=== PATIENT | female | born 1985 | race Caucasian/White ===

== ENCOUNTER 2017-02-20 05:07 | Inpatient (IN) | payer BC, OTHER ==
[2017-02-20] MEDS ORDERED: CITRIC ACID-SODIUM CITRATE 15 ML CUP PO ONE (05:21)
[2017-02-20] MEDS ORDERED: ceFAZolin 2 GM in SODIUM CHLORIDE 0.9% 100 ML IVPB ONE (05:21)
[2017-02-20] MEDS ORDERED: LACTATED RINGERS 1,000 ML IV ONE (05:21)
[2017-02-20 05:28] VITALS: BMI 30.2
[2017-02-20 05:45] LABS: Basophils % (A) 0 %; CH 28.3; CHCM 31.2; Eosinophils # (A) 0.1 k/uL (0-0.7); Eosinophils % (A) 2 %; HCT 29.1 % (34.0-46.0); HDW 2.76; HGB 9.3 gm/dL (11.4-16.0); Hypochromasia Slight; Luc # (Auto) 0.15; Luc % (Auto) 2; Lymphocytes # (A) 1.3 k/uL (1.0-4.8); Lymphocytes % (A) 21 %; MCHC 31.9 g/dL (31.0-37.0); Monocytes # (A) 0.4 k/uL (0-1.0); Monocytes % (A) 6 %; Neutrophils # (A) 4.5 k/uL (1.3-7.7); Neutrophils % (A) 70 %; RBC 3.19 m/uL (3.80-5.40); RDW 14.2 % (11.5-15.5); WBC 6.5 k/uL (3.8-10.6); WBC (Perox) 6.78
[2017-02-20] MEDS: LACTATED RINGERS 1,000 ML IV SCH ×3 (07:22→21:35)
--- NOTE | 2017-02-20 07:31 | P.HPOB ---
History of Present Illness H&P Date: 02/20/17 Chief Complaint: Here for repeat section This is a 31-year-old white female 2 para 1001 EDC 02/26/2017 at 39 and one sevenths week. Patient had a previous section, low transverse for breech presentation. She contemplated the option of , but we have elected repeat for estimated weight greater than 97th percentile and elevated HAKAN. Fetus is been active throughout the . She presents this morning with regular mild uterine contractions. She denies vaginal bleeding or fluid leakage. Past medical history is significant for renal lithiasis. Past surgical history low transverse section for breech 2013, tubes in the ears as a child, wisdom teeth extracted. Current medications vitamins daily. ALLERGIES none known. Family history is significant for diabetes and hypertension as well as blood clots. Social history patient is , she has never been a smoker, she works at a [employer], she denies alcohol or drug use. history is consistent with blood type A+, rubella status immune. VDRL testing, urine culture, hepatitis B surface antigen, HIV testing, gonorrhea and chlamydia cultures, group B strep cultures all negative. One-hour Glucola 111. On exam this is a pleasant white female, 5 foot 1 inch, 160 pounds, blood pressure 127/78. The general physical exam is within normal limits. The chest is clear in all sexton. The extremities reveal no edema. heart rate is consistent with reactive NST. position is vertex, fundal height 43 cm. Impression: 39 and one sevenths weeks intrauterine , estimated weight greater than 97th percentile with elevated HAKAN, previous section , choosing repeat , declining tubal ligation. Plan repeat low transverse section at this time. The risks benefits and alternatives of this plan have been discussed with the patient in detail, and all questions are answered. Tubal ligation is offered and declined. Review of Systems Negative except as in HPI Past Medical History Additional Past Medical History / Comment(s): 1988 Fracture skull as child, seasonal allergies History of Any Multi-Drug Resistant Organisms: None Reported Past Surgical History: Section Additional Past Surgical History / Comment(s): Tubes in ears and wisdom teeth pulled Past Anesthesia/Blood Transfusion Reactions: No Reported Reaction Past Psychological History: No Psychological Hx Reported Smoking Status: Never smoker Past Alcohol Use History: None Reported Past Drug Use History: None Reported - Past Family History Father Family Medical History: Deep Vein Thrombosis (DVT) Medications and Allergies Home Medications Medication Instructions Recorded Confirmed Type Yso-Tcac-Chnob Acid 1 each PO DAILY 12/20/13 02/20/17 History [-U Capsule] Loratadine [Claritin] 10 mg PO DAILY PRN 02/19/17 02/20/17 History Allergies Allergy/AdvReac Type Severity Reaction Status Date / Time Latex, Natural Rubber Allergy Rash/Hives Verified 02/20/17 05:20 Exam - Vital Signs Vital signs: Vital Signs Temp Pulse Resp BP 02/20/17 05:23 97.0 F L 83 16 127/78 Intake and Output 02/19/17 02/20/17 02/20/17 22:59 06:59 14:59 Other: # Voids 1 Weight 72.575 kg See dictation under HPI please Results Result Diagrams: 02/20/17 05:30 Abnormal Lab Results - Last 24 Hours (Table) 02/20/17 Range/Units 05:30 RBC 3.19 L (3.80-5.40) m/uL Hgb 9.3 L (11.4-16.0) gm/dL Hct 29.1 L (34.0-46.0) % Assessment and Plan Plan: For repeat low transverse section, declining tubal ligation. Time with Patient: Less than 30
[2017-02-20] MEDS ORDERED: ONDANSETRON 4 MG/2 ML VIAL ONE (07:33)
[2017-02-20] MEDS ORDERED: OXYTOCIN 10 UNIT/ML 1 ML VIAL ONE (07:33)
[2017-02-20] MEDS ORDERED: MORPHINE SULFATE (PF) 0.3 MG/0.3 ML SYR ONE (07:33)
[2017-02-20] MEDS ORDERED: NALBUPHINE 10 MG/ML AMPUL ONE (07:33)
[2017-02-20] MEDS ORDERED: KETOROLAC 30 MG/ML 1 ML VIAL ONE (07:33)
[2017-02-20] MEDS ORDERED: ONDANSETRON 4 MG/2 ML VIAL IVP PRN ×2 (07:59→08:30)
[2017-02-20] MEDS ORDERED: NALOXONE 0.4 MG/ML 1 ML VIAL IV PRN ×2 (07:59→08:30)
[2017-02-20] MEDS ORDERED: MORPHINE SULFATE 4 MG/ML SYRINGE IVP PRN (07:59)
[2017-02-20] MEDS ORDERED: diphenhydrAMINE 50 MG/ML 1 ML VIAL IVP PRN ×3 (07:59→08:30)
[2017-02-20] MEDS ORDERED: Acetaminophen-Codeine 300-30mg TAB PO PRN (08:30)
[2017-02-20] MEDS ORDERED: ACETAMINOPHEN TAB 325 MG TAB PO PRN (08:30)
[2017-02-20] MEDS ORDERED: ZOLPIDEM 5 MG TAB PO PRN (08:30)
[2017-02-20] MEDS ORDERED: diphenhydrAMINE 25 MG CAP PO PRN (08:30)
[2017-02-20] MEDS ORDERED: KETOROLAC 30 MG/ML 1 ML VIAL IVP PRN (08:30)
[2017-02-20] MEDS ORDERED: METOCLOPRAMIDE 5 MG/ML 2 ML VIAL IVP PRN (08:30)
[2017-02-20] MEDS ORDERED: diphenhydrAMINE 50 MG CAP PO PRN (08:30)
--- NOTE | 2017-02-20 08:30 | P.OP ---
Date of Procedure: 02/20/17 Preoperative Diagnosis: 39 and one sevenths week intrauterine , previous section, estimated weight greater than 97th percentile, elevated HAKAN. Declining . Postoperative Diagnosis: [place] male vertex, left occiput transverse, nuchal cord 1, thin lower uterine segment, normal-appearing tubes and ovaries bilaterally. Procedure(s) Performed: Repeat low transverse section Anesthesia: spinal Surgeon: Johana Syed Rug Cleaning Supervisor #1: Nayeli Tate Estimated Blood Loss (ml): 400 IV fluids (ml): 600 Urine output (ml): 250 Pathology: other (Placenta) Condition: stable Disposition: PACU Description of Procedure: Patient is brought to the operating suite where spinal with Duramorph is administered without difficulty. Patient is placed in the dorsal lithotomy position with left lateral uterine displacement. Antibiotics are given. The appropriate timeout was performed to assure proper patient and procedural identification. Donaldson catheter has been placed to direct drainage. The abdomen is prepped and draped in the usual sterile fashion. Analgesia is checked and noted to be adequate. A repeat low transverse skin incision is made in this is carried down through the subcutaneous tissue to the fascia. Fascia is isolated, scored and extended bilaterally with curved Durham scissors. Peritoneum is next identified and incised, there is no bowel or bladder involvement. Bladder flap was placed over the dome of the bladder. Bladder flap was taken down with Metzenbaum scissors and at all times the bladder was kept well from the operative field to avoid bladder and/or ureteral injury. A low transverse uterine incision is made. The lower uterine segment is very thin. Artificial amniorrhexis reveals an abundant amount of clear fluid. The incision is extended with blunt dissection. Infant's head is delivered in the left occiput transverse position. There was a nuchal cord 1 that is reduced. The oropharynx, nasopharynx, and external nares are bulb suctioned. Patient is officially delivered of a liveborn male infant at 0753 hours. Umbilical cord is doubly clamped and ligated, he is handed to waiting nurses for evaluation where scores of 9 and 9 at one and 5 minutes respectively are given. A segment of cord is sent to the lab. The placenta is delivered spontaneously, it is inspected and noted to be intact with trivascular cord. Uterus is then externalized and massaged. Oxytocin was started. The uterus is wiped clean with a sterile sponge to avoid any retained products of conception. The uterus is closed first with a running locking stitch of 0 Vicryl, second layer was imbricated 0 Vicryl for excellent reapproximation and hemostasis. Bilateral ovaries and tubes are inspected and noted to be normal. No uterine defects or fibroids are noted. Abdomen is suctioned with suction on guard and then the uterus is gently placed back into the abdominal cavity. Bilateral gutters are inspected and cleaned. Peritoneum was allowed to close by secondary intention. Fascia is closed in a running stitch of 0 Vicryl with over ligation in the midline. Subcutaneous tissue is irrigated, noted to be clean and dry. It is reapproximated with 3-0 Vicryl in a running fashion. 4-0 Monocryl is used subcuticularly for final skin closure. Steri-Strips and Mastisol are applied to the wound. Uterus is massaged for a small amount of blood. Uterus is firm and in the midline, at the umbilicus upon completion of procedure. Donaldson is noted to be draining clear urine. Estimated blood loss 400 mL's. All sponge needle and enhancement counts are correct at the end of the procedure. Patient is brought back to the recovery room in very good condition with stable vital signs including a pulse of 71, blood pressure 121/65. Infant is doing well. Patient and her are requesting circumcision further son.
[2017-02-20] MEDS: SENNOSIDES-DOCUSATE SODIUM 1 EACH TAB PO SCH (21:36)
[2017-02-21] MEDS: LACTATED RINGERS 1,000 ML IV SCH ×3 (00:43→20:18)
--- NOTE | 2017-02-21 07:29 | P.PN ---
Subjective Principal diagnosis: Post op day #1 Slept well. Minimal pain. (+) flatus. No complaints Objective - Vital Signs Vital signs: Vital Signs Temp 97.9 F 02/21/17 04:00 Pulse 80 02/21/17 06:00 Resp 14 02/21/17 06:00 BP 97/57 02/21/17 04:00 Pulse Ox 98 02/21/17 06:00 Intake & Output 02/20/17 02/21/17 02/21/17 18:59 06:59 18:59 Output Total 2900 Balance -2900 Output: Urine 2500 Uretheral (Donaldson) 1800 Estimated Blood Loss 400 Other: # Voids 1 1 - Constitutional General appearance: Present: average body habitus, cooperative - EENT Eyes: Present: PERRLA ENT: Present: hearing grossly normal - Neck Neck: Present: normal ROM - Respiratory Respiratory: bilateral: CTA - Cardiovascular Rhythm: regular - Gastrointestinal Gastrointestinal Comment(s): Incision clean and dry, well approximated. General gastrointestinal: Present: normal bowel sounds - Integumentary Integumentary: Present: normal - Neurologic Neurologic: Present: CNII-XII intact - Musculoskeletal Musculoskeletal: Present: gait normal, strength equal bilaterally - Psychiatric Psychiatric: Present: A&O x's 3, appropriate affect, intact judgment & insight - Labs CBC & Chem 7: 02/20/17 05:30 Assessment and Plan Plan: Continue post operative care. Circ now. Likely discharge home tomorrow. Time with Patient: Less than 30
[2017-02-21] MEDS: IBUPROFEN 600 MG TAB PO PRN ×2 (07:43→15:55)
[2017-02-21] MEDS: SENNOSIDES-DOCUSATE SODIUM 1 EACH TAB PO SCH ×2 (07:45→20:17)
[2017-02-21 07:53] VITALS: RESP 16
[2017-02-21 08:12] LABS: Basophils % (A) 0 %; CH 28.7; CHCM 32.1; Eosinophils # (A) 0.1 k/uL (0-0.7); Eosinophils % (A) 1 %; HCT 35.8 % (34.0-46.0); HDW 2.75; HGB 11.4 gm/dL (11.4-16.0); Luc # (Auto) 0.18; Luc % (Auto) 2; Lymphocytes # (A) 1.2 k/uL (1.0-4.8); Lymphocytes % (A) 13 %; MCH 28.6 pg (25.0-35.0); MCHC 31.8 g/dL (31.0-37.0); Mean Platelet Volume 8.1; Monocytes # (A) 0.5 k/uL (0-1.0); Monocytes % (A) 5 %; Neutrophils # (A) 7.4 k/uL (1.3-7.7); Neutrophils % (A) 78 %; RBC 3.98 m/uL (3.80-5.40); RDW 14.4 % (11.5-15.5); WBC 9.5 k/uL (3.8-10.6); WBC (Perox) 9.98
--- NOTE | 2017-02-21 12:05 | P.PN ---
Progress Note - Text 1003 Anesthesia POD 1. Patient is status post section under spinal anesthesia with intra-thecal preservative free morphine 300 g. Mild pruritus, good post-op analgesia, and no headache or other complications.
[2017-02-22] MEDS: SENNOSIDES-DOCUSATE SODIUM 1 EACH TAB PO SCH (08:37)
[2017-02-22 08:51] VITALS: BP 122/71; PULSE 81; TEMP 98.2
--- NOTE | 2017-02-22 10:25 | P.PNOBGPC ---
Subjective - Subjective Principal diagnosis: Postoperative day #2 status post repeat Patient reports: Reports appetite normal, Reports voiding normally, Reports pain well controlled, Reports ambulating normally : doing well (At the bedside with mom) Objective - Vital Signs Latest vital signs: Vital Signs Temp Pulse Resp BP Pulse Ox 02/22/17 08:00 98.2 F 81 16 122/71 02/22/17 00:00 98.5 F 68 16 115/66 98 - Exam Lungs: bilateral: normal Abdomen: Present: normal appearance Incision: Present: normal, dry, intact Uterus: Present: firm Assessment and Plan (1) Term Current Visit: Yes Status: Acute Code(s): Z34.80 - ENCOUNTER FOR SUPRVSN OF NORMAL , UNSP TRIMESTER SNOMED Code(s): 90442524 (2) S/P repeat low transverse Narrative/Plan: done, please see operative report for further details on the C- section. patient has done well, she is ambulating and voiding without difficulty. She is tolerating a regular diet without nausea or vomiting. She is using Tylenol and Motrin for pain. She desires discharge home today on postop day #2 Current Visit: Yes Status: Acute Code(s): Z98.891 - HISTORY OF UTERINE SCAR FROM PREVIOUS SURGERY SNOMED Code(s): 875322164 (3) LGA (large for gestational age) fetus Current Visit: Yes Status: Acute Code(s): DLA2320 - SNOMED Code(s): 111748632
--- NOTE | 2017-02-22 10:30 | P.DS ---
Providers Date of admission: 02/20/17 05:07 Expected date of discharge: 02/22/17 Attending physician: Johana Syed Primary care physician: Stated None - Discharge Diagnosis(es) (1) Term Current Visit: Yes Status: Acute (2) S/P repeat low transverse This is a very pleasant 31-year-old 2 para 1001 with estimated date of confinement of 02/26/2017. She presents to labor and delivery for repeat section at 39-1/7 weeks. She had her prior secondary to breech and elected a repeat secondary to large for gestational age with the fetus being greater than the 97th percentile. Her was done without difficulty please see operative report for further details. male infant wt 8-11 at 753, apgars 8, 9 at 1 and 5 minutes respectively. Her postoperative course has been benign. By postop day #2 she was ambulating and voiding without difficulty. She is tolerating a regular diet without nausea or vomiting. She denies concerns and wishes discharge home on post operative day # 2 Current Visit: Yes Status: Acute (3) LGA (large for gestational age) fetus Current Visit: Yes Status: Acute Plan - Discharge Summary New Discharge Prescriptions: No Action Kmy-Kvke-Yutte Acid [-U Capsule] 1 each PO DAILY Loratadine [Claritin] 10 mg PO DAILY PRN PRN Reason: allergies Discharge Medication List Ddj-Bbri-Rodyo Acid [-U Capsule] 1 each PO DAILY 12/20/13 [ History] Loratadine [Claritin] 10 mg PO DAILY PRN 02/19/17 [History] Follow up Appointment(s)/Referral(s): Johana Syed MD [STAFF PHYSICIAN] - 1 Week Patient Instructions/Handouts: (DC)
== END 2017-02-22 12:55 | disposition home or self-care (01) | DRG 766 ==
LOC: 4FBP 05:07
PROVIDERS: ADMIT Obstetrics & Gynecology; ATTEND Obstetrics & Gynecology
PROC: 10D00Z1 Extraction of Products of Conception, Low, Open Approach (ICD-10-PCS; principal; 2017-02-20 07:30)
DX: O34.211 Maternal care for low transverse scar from previous cesarean delivery (principal); O36.63X0 Maternal care for excessive fetal growth, third trimester, not applicable or unspecified; O69.81X0 Labor and delivery complicated by cord around neck, without compression, not applicable or unspecified; Z37.0 Single live birth; Z3A.39 39 weeks gestation of pregnancy
CPT/HCPCS: 85025; 86850; 86900; 86901; 88307

== ENCOUNTER 2021-03-08 15:48 | Emergency (ER) | payer BC, OTHER ==
[2021-03-08 16:06] VITALS: RESP 20
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
[2021-03-08] MEDS ORDERED: MORPHINE SULFATE 4 MG/ML SYRINGE IM STA (16:56)
[2021-03-08] MEDS ORDERED: ONDANSETRON ODT 4 MG TAB PO STA (17:08)
[2021-03-08] MEDS ORDERED: ACETAMINOPHEN TAB 325 MG TAB PO STA (17:08)
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
[2021-03-08 19:04] VITALS: BP 113/75; PULSE 79; TEMP 98.1
== END 2021-03-08 19:04 | disposition home or self-care (01) ==
LOC: EC 15:48
DX: S16.1XXA Strain of muscle, fascia and tendon at neck level, initial encounter (principal); M54.50 Low back pain, unspecified; Z91.040 Latex allergy status; V49.9XXA Car occupant (driver) (passenger) injured in unspecified traffic accident, initial encounter; Y92.410 Unspecified street and highway as the place of occurrence of the external cause
CPT/HCPCS: 70450; 72100; 72125; 72170; 99284